=== PATIENT | male | born 1950 | race Caucasian/White ===

== ENCOUNTER 2017-01-25 08:20 | Emergency (ER) | payer MEDICARE, OTHER ==
--- NOTE | 2017-01-25 09:14 | ERNOTE ---
Medical Problem HPI - General Chief Complaint: General Assessment Time Seen by Provider: 01/25/17 08:35 Source: patient Exam Limitations: no limitations - Immun/Allergies/Home Medications Immunizations: IMMUNIZATION HX Immunizations Up to Date Yes History of Influenza Vaccine No Hx Pneumococcal Vaccination No Allergies/Adverse Reactions: Allergies codeine Adverse Reaction (Severe, Verified 01/25/17 08:51) Vomiting Home Medications: HOME MEDICATIONS Diclofenac Sodium [Voltaren] 75 mg PO BID 01/25/17 [Last Taken Unknown] Doxycycline Monohydrate 100 mg PO BID #20 tablet 01/25/17 [Last Taken Unknown] Lisinopril [Prinivil] 10 mg PO DAILY 01/25/17 [Last Taken Unknown] - History of Present History Narrative: pt lifted weights and then three days later had lots of shoulder pain and bilateral upper extremity weakness and pain. Pt also states that he found a tick in his shirt about a few days prior to the onset of symptoms Review of Systems - Review of Systems Constitutional: Present: no symptoms reported EYE: Present: no symptoms reported ENT: Present: no symptoms reported Respiratory: Present: no symptoms reported Cardiology: Present: no symptoms reported Gastrointestinal/Abdominal: Present: no symptoms reported Genitourinary: Present: no symptoms reported Musculoskeletal: Present: See HPI - also has upper back and neck pain since after lifting weights - Patient's Past Medical History Patient History - Medical: Arthritis, Other Patient History - Cardiac/Respiratory: Hypertension Patient History - Cancer: No Hx of Cancer Patient History - Surgical Procedures: No surgical history Patient History - Other: None - Social History Living Situations: home Abuse History: No History of abuse Psych History: No pertinent hx Smoking Status: Never smoker Alcohol Use: none Drug Use: none - Immunizations Immunizations Up to Date: Yes Hx Pneumococcal Vaccination: No History of Influenza Vaccine: No Physical Exam - Physical Exam General Appearance: Present: wd/wn, alert, no apparent distress Head Exam: Present: normal inspection, no evidence of injury Ears, Nose, Throat: Present: normal ENT inspection Neck: Present: normal inspection Respiratory: Present: no respiratory distress, normal breath sounds, no accessory muscle use, chest nontender, lungs clear Cardiovascular/Chest: Present: regular rate, rhythm, no murmur, normal peripheral pulses Gastrointestinal/Abdominal: Present: normal bowel sounds, nontender, nondistended, soft, no organomegaly Back Exam: Present: normal inspection, other - tender on palpation in paravertebral region however, no deformity noted Extremity Exam: Present: normal inspection, other - pt's grasp is weak bilaterally ED Progress - Vital Signs Vital Signs: Vital Signs 01/25/17 08:44 Temperature 36.7 C Pulse Rate 66 Respiratory 16 Rate Blood Pressure 142/75 O2 Sat by Pulse 96 Oximetry - Progress/Reassessment Chief Complaint: General Assessment Plan - Plan Plan: This patient presents with symptoms of what appears to be upper extremity fatigue bilaterally after he worked out strenuously a couple of weeks ago. Additionally the history is compounded by the fact that he found a tick on his shirt but none on his body and no bite benedict. He does have an area of redness on the dorsal aspect of his left hand which I am calling a cellulitis. At this time she he will be treated with doxycycline 100 mg twice a day and he is to follow-up with his regular doctor. Departure - Departure Clinical Impression: Cellulitis Qualifiers: Site of cellulitis: extremity Site of cellulitis of extremity: upper extremity Laterality: left Qualified Code(s): L03.114 - Cellulitis of left upper limb Disposition: Home self-care Condition: Good Instructions: Cellulitis, Adult, [id number] Additional Instructions: You are being treated for a cellulitis on the back of yet left hand I believe that your fatigue for the upper extremities is due to your history of strenuous workout. Please follow-up with your regular doctor as needed. Prescriptions: Doxycycline Monohydrate 100 mg PO BID #20 tablet
[2017-01-25 09:49] LABS: CRP 6.9 mg/dL (0.0-0.9)
[2017-01-25 10:24] LABS: Hematocrit 40.7 % (42.0-52.0); Hemoglobin 14.5 gm/dL (13.5-18.0); Mean Cell Volume 86.8 fl (78-100); Mean Corpuscular Hemoglobin 30.9 pg (27-31); Mean Corpuscular Hgb Conc 35.6 g/dl (32-36); Mean Platelet Volume 9.9 fl (6.0-9.5); Neutrophil # 7.8 K/mm3 (1.3-6.0); Neutrophil % 80.2 % (42-75.0); Platelet Count 182 K/mm3 (150-450); Red Blood Count 4.69 M/mm3 (4.7-6.0); Red Cell Distribution Width 12.7 % (11.5-14.0); White Blood Count 9.7 K/mm3 (4.0-10.5)
[2017-01-25 12:45] VITALS: BP 130/68
[2017-01-26 16:27] LABS: 18KD (IGG) Band NON-REACTIVE; 23KD (IGG) Band NON-REACTIVE; 28KD (IgG) Band NON-REACTIVE; 30KD (IgG) Band REACTIVE; 39KD (IgG) Band NON-REACTIVE; 39KD (IgM) Band NON-REACTIVE; 41KD (IgG) Band NON-REACTIVE; 45KD (IgG) Band NON-REACTIVE; 58KD (IgG) Band NON-REACTIVE; 66KD (IgG) Band NON-REACTIVE; 93KD (IgG) Band NON-REACTIVE; B burgdorferi IgM WB NEGATIVE (NEGATIVE); B.burgdorferi Ab (IgG) WB NEGATIVE (NEGATIVE)
[2017-01-26 16:47] LABS: 41KD (IgM) Band NON-REACTIVE
== END 2017-01-25 12:46 | disposition home or self-care (01) ==
LOC: ER 08:20
DX: L03.114 Cellulitis of left upper limb (principal); I10 Essential (primary) hypertension; M19.90 Unspecified osteoarthritis, unspecified site; M79.622 Pain in left upper arm; M79.621 Pain in right upper arm